=== PATIENT | male | born 1960 | race Two or more races ===

== ENCOUNTER 2023-10-12 10:41 | Emergency (ER) | payer OTHER ==
[~2023-10-12] VITALS: Ht 175.3 cm; Wt 114.8 kg
[~2023-10-12 10:41] MED LIST: KETO10TA2 PO; TAMS0.4C PO
[2023-10-12] MEDS ORDERED: IRBESARTAN150 MG PO (11:12)
[2023-10-12] MEDS ORDERED: CRESTOR40 MG PO (11:12)
[2023-10-12] MEDS ORDERED: MITIGARE0.6 MG PO (11:13)
[2023-10-12] MEDS ORDERED: DRAMAMINE LESS25 MG PO (11:13)
[2023-10-12] MEDS ORDERED: METHYLPREDNISOLONE SOD SUCC 125 MG VIAL IV ONE (11:30)
[2023-10-12] MEDS ORDERED: LEVALBUTEROL HCL 0.63 MG/3 ML SOLUTION IH SCH (11:30)
[2023-10-12] MEDS ORDERED: METHYLPREDNISOLONE SOD SUCC 125 MG VIAL ONE (11:40)
[2023-10-12] MEDS ORDERED: LEVALBUTEROL HCL 0.63 MG/3 ML SOLUTION IH ONE (11:55)
[2023-10-12 12:22] LABS: HEMOGLOBIN 13.6 g/dL (13-16.00); MEAN CELL VOLUME 85.6 fL (80.0-100.00); MEAN CORPUSCULAR HEMOGLOBIN 29.1 pg (27.00-32.0); PLATELET COUNT 213 K/uL (150-450); RED BLOOD COUNT 4.67 M/uL (4.00-6.00); RED CELL DISTRIBUTION WIDTH 14.1 % (11.5-14.5)
[2023-10-12 12:37] LABS: ABG PH 7.402 (7.35-7.45); ABG PO2 87.6 mmHg (80-100); ABG pCO2 41.6 mmHg (35-45); BASE EXCESS 0.5 mmol/l; BICARBONATE 25.3 mmol/l (23-25); SaO2 96.7 %; Tco2 26.6 mmol/l; allen test SATISFACTORY; o2 21 %; puncture site RADIAL RIGHT
[2023-10-12 12:57] LABS: PH,URINE 6.5 (5.0-8.0); URINE APPEARANCE Clear; URINE BILIRRUBIN Negative (NEGATIVE); URINE BLOOD Negative; URINE COLOR Yellow; URINE GLUCOSE Negative (NEGATIVE); URINE KETONE Negative (NEGATIVE); URINE LEUKOCYTE Negative; URINE NITRATE Negative; URINE PROTEIN Negative (NEGATIVE); URINE UROBILINOGEN 0.2 E.U./dl
[2023-10-12 12:59] LABS: CALCIUM 9.1 mg/dL (8.5-10.1); CREATININE SERUM 0.87 mg/dL (0.70-1.30); GFR 88.06; POTASSIUM 4.19 mEq/L (3.5-5.1)
[2023-10-12 13:02] LABS: URINE BACTERIA 15.1 uL (0.0-1933); URINE EPITHELIAL CELLS 2.6 uL (0.0-38.8); URINE RBC 2.7 uL (0.0-20.8); URINE WBC 2.4 uL (0.0-23.2)
[2023-10-12 13:05] LABS: URINE CAST 0.15 uL (0.0-1.40)
== END 2023-10-12 14:01 | disposition home or self-care (01) ==
LOC: ER 10:42
PROVIDERS: Emergency Medicine
DX: J45.909 Unspecified asthma, uncomplicated (principal); Z88.0 Allergy status to penicillin; Z91.041 Radiographic dye allergy status; Z88.6 Allergy status to analgesic agent; Z20.822 Contact with and (suspected) exposure to COVID-19
CPT/HCPCS: 36415; 71046; 82803; 94640; 96365; 99283; J3490

== ENCOUNTER 2023-11-13 03:41 | Emergency (ER) | payer OTHER ==
[~2023-11-13] VITALS: Ht 175.3 cm; Wt 114.8 kg
[~2023-11-13 03:41] MED LIST changes: +CRESTOR40 MG PO; +DRAMAMINE LESS25 MG PO; +IRBESARTAN150 MG PO; +MITIGARE0.6 MG PO
[2023-11-13 04:58] LABS: URINE APPEARANCE Clear; URINE BILIRRUBIN Negative (NEGATIVE); URINE BLOOD Negative; URINE COLOR Yellow; URINE KETONE Negative (NEGATIVE); URINE LEUKOCYTE Negative; URINE NITRATE Negative; URINE PROTEIN 30 (NEGATIVE); URINE UROBILINOGEN 0.2 E.U./dl
[2023-11-13 05:00] LABS: HEMATOCRIT 39.3 % (39.0-48.0); HEMOGLOBIN 13.2 g/dL (13-16.00); MEAN CELL VOLUME 85.9 fL (80.0-100.00); MEAN CORPUSCULAR HEMOGLOBIN 28.8 pg (27.00-32.0); MEAN CORPUSCULAR HGB CONC 33.5 g/dl (32.0-36.0); PLATELET COUNT 266 K/uL (150-450); RED BLOOD COUNT 4.58 M/uL (4.00-6.00); RED CELL DISTRIBUTION WIDTH 14.1 % (11.5-14.5)
[2023-11-13 05:01] LABS: URINE BACTERIA 57.9 uL (0.0-1933); URINE EPITHELIAL CELLS 3.3 uL (0.0-38.8); URINE RBC 6.8 uL (0.0-20.8); URINE WBC 14.9 uL (0.0-23.2)
[2023-11-13 05:04] LABS: URINE CAST 0.15 uL (0.0-1.40); URINE GLUCOSE 100 MG/DL (NEGATIVE)
[2023-11-13 05:18] LABS: ALBUMIN 3.5 gm/dL (3.4-5.0); BILIRUBIN TOTAL 0.29 mg/dL (0.3-1.2); CALCIUM 8.8 mg/dL (8.5-10.1); CREATININE SERUM 1.11 mg/dL (0.70-1.30); GFR 66.48; GLOBULINA 3.8 G/DL (2.4-3.5); POTASSIUM 4.82 mEq/L (3.5-5.1); TOTAL PROTEIN 7.3 gm/dL (6.4-8.2)
[2023-11-13] MEDS ORDERED: ORPHENADRINE CITRATE 30 MG/ML AMPUL IM STA (07:20)
[2023-11-13] MEDS ORDERED: KETOROLAC TROMETHAMINE 30 MG VIAL IV STA (07:20)
[2023-11-13] MEDS ORDERED: ORPHENADRINE CITRATE 30 MG/ML AMPUL ONE ×2 (07:37→12:47)
[2023-11-13] MEDS ORDERED: KETOROLAC TROMETHAMINE 30 MG VIAL ONE (07:37)
[2023-11-13] MEDS ORDERED: ORPHENADRINE CITRATE 30 MG/ML AMPUL IM ONE (12:45)
== END 2023-11-13 12:56 | disposition home or self-care (01) ==
LOC: ER 03:41
PROVIDERS: General Practice
DX: R53.81 Other malaise (principal); M54.50 Low back pain, unspecified; R10.9 Unspecified abdominal pain; I10 Essential (primary) hypertension; Z88.0 Allergy status to penicillin; Z88.5 Allergy status to narcotic agent; Z91.041 Radiographic dye allergy status
CPT/HCPCS: 36415; 74176; 93005; 96365; 96372; 99284; J1885; J2360 ×2

== ENCOUNTER 2023-11-22 18:42 | Emergency (ER) | payer OTHER ==
[~2023-11-22] VITALS: Ht 172.7 cm; Wt 90.7 kg
[2023-11-22] MEDS ORDERED: KETOROLAC TROMETHAMINE 15 MG VIAL IV ONE (19:30)
[2023-11-22] MEDS ORDERED: KETOROLAC TROMETHAMINE 30 MG VIAL ONE (19:33)
[2023-11-22 20:00] LABS: HEMATOCRIT 37.1 % (39.0-48.0); HEMOGLOBIN 12.8 g/dL (13-16.00); MEAN CELL VOLUME 85.3 fL (80.0-100.00); MEAN CORPUSCULAR HEMOGLOBIN 29.4 pg (27.00-32.0); MEAN CORPUSCULAR HGB CONC 34.5 g/dl (32.0-36.0); PLATELET COUNT 292 K/uL (150-450); RED BLOOD COUNT 4.34 M/uL (4.00-6.00); RED CELL DISTRIBUTION WIDTH 13.9 % (11.5-14.5)
[2023-11-22 20:21] LABS: ALBUMIN 3.6 gm/dL (3.4-5.0); BILIRUBIN TOTAL 0.39 mg/dL (0.3-1.2); CALCIUM 9.4 mg/dL (8.5-10.1); CREATININE SERUM 1.1 mg/dL (0.70-1.30); GFR 67.18; GLOBULINA 3.5 G/DL (2.4-3.5); POTASSIUM 4.49 mEq/L (3.5-5.1); TOTAL PROTEIN 7.1 gm/dL (6.4-8.2)
[2023-11-22 20:24] LABS: C-REACTIVE PROTEIN 3.04 MG/DL (0.00-0.29)
[2023-11-22] MEDS ORDERED: ENOXAPARIN SODIUM 80 MG/0.8 ML SYRINGE SUBCUTANEO ONE ×2 (20:45→20:48)
[2023-11-22 21:34] LABS: ERYTHROCYTE SEDIMENTATION RATE 57 mm/hr
== END 2023-11-22 21:14 | disposition home or self-care (01) ==
LOC: ER 18:43
PROVIDERS: General Practice
DX: I82.621 Acute embolism and thrombosis of deep veins of right upper extremity (principal); Z88.0 Allergy status to penicillin; Z91.041 Radiographic dye allergy status; E78.00 Pure hypercholesterolemia, unspecified; I10 Essential (primary) hypertension; I73.89 Other specified peripheral vascular diseases
CPT/HCPCS: 36415; 93005; 96365; 96372; 99283; J1650; J1885

== ENCOUNTER 2023-11-23 07:51 | Emergency (ER) | payer OTHER ==
[~2023-11-23] VITALS: Ht 175.3 cm; Wt 114.8 kg
[2023-11-23] MEDS ORDERED: hydrALAZINE HCL 20 MG VIAL IV ONE (08:45)
[2023-11-23] MEDS ORDERED: hydrALAZINE HCL 20 MG VIAL ONE (09:03)
[2023-11-23 09:50] LABS: INR 1.01; PARTIAL THROMBOPLASTIN TIME 31.4 SECONDS (22.0-34.0)
[2023-11-23 10:33] LABS: ABG PH 7.463 (7.35-7.45); ABG PO2 97.8 mmHg (80-100); ABG pCO2 33.7 mmHg (35-45); BASE EXCESS 0.5 mmol/l; BICARBONATE 23.6 mmol/l (23-25); Tco2 24.6 mmol/l; allen test SATISFACTORY; o2 21 %; puncture site RADIAL RIGHT
[2023-11-23] MEDS ORDERED: AMLODIPINE BESYLATE 10 MG TABLET PO ONE (12:30)
== END 2023-11-23 15:37 | disposition home or self-care (01) ==
LOC: ER 07:52
PROVIDERS: General Practice
DX: I10 Essential (primary) hypertension (principal); R07.9 Chest pain, unspecified; M79.601 Pain in right arm; M19.90 Unspecified osteoarthritis, unspecified site; J45.909 Unspecified asthma, uncomplicated; I50.9 Heart failure, unspecified; N40.0 Benign prostatic hyperplasia without lower urinary tract symptoms; Z88.0 Allergy status to penicillin; Z91.041 Radiographic dye allergy status; Z88.8 Allergy status to other drugs, medicaments and biological substances
CPT/HCPCS: 36415; 71045; 82803; 93005; 93971; 96365; 99284; J3490

== ENCOUNTER 2023-12-07 09:02 | Emergency (ER) | payer OTHER ==
[~2023-12-07] VITALS: Ht 172.7 cm; Wt 115.2 kg
[2023-12-07] MEDS ORDERED: BRILINTA60 MG PO (09:29)
[2023-12-07] MEDS ORDERED: ELIQUIS5 M1 PO (09:29)
[2023-12-07 11:10] LABS: HEMATOCRIT 39.9 % (39.0-48.0); HEMOGLOBIN 13.4 g/dL (13-16.00); MEAN CELL VOLUME 86.4 fL (80.0-100.00); MEAN CORPUSCULAR HEMOGLOBIN 28.9 pg (27.00-32.0); MEAN CORPUSCULAR HGB CONC 33.5 g/dl (32.0-36.0); PLATELET COUNT 369 K/uL (150-450); RED BLOOD COUNT 4.63 M/uL (4.00-6.00); RED CELL DISTRIBUTION WIDTH 13.8 % (11.5-14.5)
[2023-12-07 11:50] LABS: CALCIUM 9.4 mg/dL (8.5-10.1); CREATININE SERUM 1.04 mg/dL (0.70-1.30); GFR 71.67; POTASSIUM 4.37 mEq/L (3.5-5.1)
[2023-12-07] MEDS ORDERED: AZITHROMYCIN 500 MG TABLET PO ONE (13:30)
== END 2023-12-07 14:00 | disposition home or self-care (01) ==
LOC: ER 09:04
PROVIDERS: Emergency Medicine
DX: J40 Bronchitis, not specified as acute or chronic (principal); R05.9 Cough, unspecified; Z20.822 Contact with and (suspected) exposure to COVID-19; I10 Essential (primary) hypertension; Z88.0 Allergy status to penicillin; Z88.5 Allergy status to narcotic agent; Z91.041 Radiographic dye allergy status

== ENCOUNTER 2024-03-19 13:15 | Inpatient (IN) | payer OTHER ==
[~2024-03-19] VITALS: Ht 175.3 cm; Wt 81.6 kg
[~2024-03-19 13:15] MED LIST changes: +BRILINTA60 MG PO; +ELIQUIS5 M1 PO
[2024-03-19] MEDS ORDERED: METHYLPREDNISOLONE SOD SUCC 40 MG VIAL ONE (16:23)
[2024-03-19] MEDS ORDERED: MAGNESIUM SULFATE 50% 1,000 MG/2 ML VIAL ONE (16:23)
[2024-03-19] MEDS ORDERED: IPRATROPIUM BROMIDE 0.5 MG/2.5 ML AMPUL.NEB IH SCH (16:30)
[2024-03-19] MEDS ORDERED: MAGNESIUM SULFATE IN WATER 2 GM/50 ML PIGGYBAG IV ONE (16:30)
[2024-03-19] MEDS ORDERED: METHYLPREDNISOLONE SOD SUCC 40 MG VIAL IM ONE (16:30)
[2024-03-19] MEDS ORDERED: LEVALBUTEROL HCL 1.25 MG/3 ML SOLUTION IH SCH (16:30)
[2024-03-19 17:04] LABS: HEMATOCRIT 36.7 % (39.0-48.0); HEMOGLOBIN 12.1 g/dL (13-16.00); MEAN CELL VOLUME 82.7 fL (80.0-100.00); MEAN CORPUSCULAR HEMOGLOBIN 27.2 pg (27.00-32.0); MEAN CORPUSCULAR HGB CONC 32.8 g/dl (32.0-36.0); PLATELET COUNT 266 K/uL (150-450); RED BLOOD COUNT 4.44 M/uL (4.00-6.00); RED CELL DISTRIBUTION WIDTH 14.9 % (11.5-14.5)
[2024-03-19 17:37] LABS: ALBUMIN 3.4 gm/dL (3.4-5.0); BILIRUBIN TOTAL 0.25 mg/dL (0.3-1.2); CALCIUM 8.6 mg/dL (8.5-10.1); CREATININE SERUM 0.94 mg/dL (0.70-1.30); GFR 80.54; GLOBULINA 3.9 G/DL (2.4-3.5); POTASSIUM 4.02 mEq/L (3.5-5.1); TOTAL PROTEIN 7.3 gm/dL (6.4-8.2)
[2024-03-19] MEDS ORDERED: LEVALBUTEROL HCL 1.25 MG/3 ML SOLUTION IH ONE (18:32)
[2024-03-19] MEDS ORDERED: IPRATROPIUM BROMIDE 0.5 MG/2.5 ML AMPUL.NEB IH ONE (18:32)
[2024-03-19 19:22] LABS: ABG PH 7.391 (7.35-7.45); ABG PO2 57.8 mmHg (80-100); ABG pCO2 44.7 mmHg (35-45); BASE EXCESS 1.1 mmol/l; BICARBONATE 26.5 mmol/l (23-25); SaO2 89.5 %; Tco2 27.9 mmol/l; puncture site RADIAL RIGHT
[2024-03-19 19:23] LABS: allen test SATISFACTORY; o2 21 %
[2024-03-19] MEDS ORDERED: ACETAMINOPHEN 500 MG GEL..CAP PO PRN (23:45)
[2024-03-19] MEDS ORDERED: 0.9 % SODIUM CHLORIDE 1,000 ML IV SCH (23:45)
[2024-03-19] MEDS ORDERED: MONTELUKAST SODIUM 10 MG TABLET PO SCH (23:46)
[2024-03-19] MEDS ORDERED: levoFLOXacin IN DEXTROSE 5 % 150 ML IV SCH (23:47)
[2024-03-19] MEDS ORDERED: FAMOTIDINE/PF 20 MG in 0.9 % SODIUM CHLORIDE 8 ML IV PUSH SCH (23:47)
[2024-03-20] MEDS ORDERED: METHYLPREDNISOLONE SOD SUCC 40 MG VIAL IV SCH ×3 (01:00→17:00)
[2024-03-20] MEDS ORDERED: LEVALBUTEROL HCL 1.25 MG/3 ML SOLUTION IH SCH (01:00)
[2024-03-20] MEDS ORDERED: GUAIFEN/DEXTROMETHORPHAN/PE 10 ML BLIST.PACK PO SCH (01:00)
[2024-03-20] MEDS ORDERED: IPRATROPIUM BROMIDE 0.5 MG/2.5 ML AMPUL.NEB IH SCH (01:00)
[2024-03-20 04:21] LABS: D DIMER 0.33 MG/L; PARTIAL THROMBOPLASTIN TIME 26.2 SECONDS (22.0-34.0)
[2024-03-20 04:42] LABS: INR 0.99; PROTHROMBIN TIME 10.8 SECONDS (9.0-11.5)
[2024-03-20 04:49] LABS: URINE APPEARANCE Clear; URINE BILIRRUBIN Negative (NEGATIVE); URINE BLOOD Negative; URINE COLOR Yellow; URINE KETONE Trace (NEGATIVE); URINE LEUKOCYTE Negative; URINE NITRATE Negative; URINE PROTEIN Trace (NEGATIVE); URINE UROBILINOGEN 0.2 E.U./dl
[2024-03-20 04:53] LABS: URINE BACTERIA 18.3 uL (0.0-1933); URINE RBC 4.1 uL (0.0-20.8); URINE WBC 4.5 uL (0.0-23.2)
[2024-03-20 05:00] LABS: URINE GLUCOSE 500 MG/DL (NEGATIVE)
[2024-03-20] MEDS ORDERED: APIXABAN 5 MG TABLET PO SCH (05:00)
[2024-03-20 08:48] VITALS: BP 160/70; O2SAT 97
[2024-03-20] MEDS ORDERED: TICAGRELOR 90 MG TABLET PO SCH (09:00)
[2024-03-20] MEDS ORDERED: hydrALAZINE HCL 25 MG TABLET PO SCH (09:00)
[2024-03-20] MEDS ORDERED: ATORVASTATIN CALCIUM 40 MG TABLET PO SCH (09:00)
[2024-03-20] MEDS ORDERED: DIPHENHYDRAMINE HCL 50 MG/ML VIAL 1ML IV NR (09:15)
[2024-03-20] MEDS ORDERED: BUDESONIDE 0.5 MG/2 ML AMPUL.NEB IH NR (14:00)
[2024-03-20 16:52] VITALS: BP 158/72; O2SAT 100
[2024-03-20] MEDS ORDERED: BUDESONIDE 0.5 MG/2 ML AMPUL.NEB IH SCH (21:00)
[2024-03-21 01:25] VITALS: BP 146/67; O2SAT 97
[2024-03-21 07:04] LABS: HEMATOCRIT 36.5 % (39.0-48.0); HEMOGLOBIN 11.8 g/dL (13-16.00); MEAN CELL VOLUME 84.5 fL (80.0-100.00); MEAN CORPUSCULAR HEMOGLOBIN 27.3 pg (27.00-32.0); MEAN CORPUSCULAR HGB CONC 32.3 g/dl (32.0-36.0); PLATELET COUNT 284 K/uL (150-450); RED BLOOD COUNT 4.31 M/uL (4.00-6.00); RED CELL DISTRIBUTION WIDTH 14.3 % (11.5-14.5)
[2024-03-21 07:45] LABS: ALKALINE PHOSPHATASE 76 U/L (50-136); ALT/SGPT 25 U/L (12-78); ANION GAP 9 (10.0-20.0); AST/SGOT 14 U/L (15-37); BILIRUBIN TOTAL 0.17 mg/dL (0.3-1.2); BLOOD UREA NITROGEN 18 mg/dL (7-18); BUN CREA RATIO 19 (7.0-25.0); CALCIUM 8.8 mg/dL (8.5-10.1); CARBON DIOXIDE 29 mEq/L (21-32); CHLORIDE 109 mmol/L (98-107); CREATININE SERUM 0.93 mg/dL (0.70-1.30); GFR 81.54; GLOBULINA 3.1 G/DL (2.4-3.5); GLUCOSE FASTING 184 mg/dL (65-100); OSMOLALITY SERUM 290 MOSM/KG (275-295); PHOSPHOROUS 3.1 mg/dL (2.5-4.9); POTASSIUM 5.28 mEq/L (3.5-5.1); SODIUM 142 mmol/L (136-145); TOTAL PROTEIN 6.1 gm/dL (6.4-8.2)
[2024-03-21 07:51] LABS: C-REACTIVE PROTEIN < 0.29 MG/DL (0.00-0.29)
[2024-03-21 09:18] VITALS: BP 162/82; O2SAT 96
[2024-03-21 15:30] VITALS: BP 155/66
[2024-03-21] MEDS ORDERED: FAMOTIDINE/PF 20 MG in 0.9 % SODIUM CHLORIDE 8 ML IV PUSH SCH (21:00)
[2024-03-22] MEDS ORDERED: METHYLPREDNISOLONE SOD SUCC 40 MG VIAL ONE (00:20)
[2024-03-22 00:57] VITALS: BP 179/77; O2SAT 98
[2024-03-22] MEDS ORDERED: METHYLPREDNISOLONE SOD SUCC 40 MG VIAL IV SCH (01:00)
[2024-03-22 09:31] VITALS: BP 159/76; O2SAT 98
[2024-03-22] MEDS ORDERED: FAMOTIDINE/PF 20 MG/2 ML VIAL ONE (15:57)
[2024-03-22 16:26] VITALS: BP 153/71; O2SAT 97
[2024-03-23 01:00] VITALS: BP 128/65; O2SAT 97
[2024-03-23 08:14] LABS: HEMOGLOBIN 11.7 g/dL (13-16.00); MEAN CELL VOLUME 84.1 fL (80.0-100.00); MEAN CORPUSCULAR HEMOGLOBIN 27.3 pg (27.00-32.0); MEAN CORPUSCULAR HGB CONC 32.5 g/dl (32.0-36.0); PLATELET COUNT 292 K/uL (150-450); RED BLOOD COUNT 4.28 M/uL (4.00-6.00); RED CELL DISTRIBUTION WIDTH 15.1 % (11.5-14.5)
[2024-03-23 08:25] VITALS: BP 158/70
[2024-03-23 08:34] LABS: ALBUMIN 2.8 gm/dL (3.4-5.0); ALKALINE PHOSPHATASE 74 U/L (50-136); ALT/SGPT 29 U/L (12-78); ANION GAP 10 (10.0-20.0); AST/SGOT 13 U/L (15-37); BILIRUBIN TOTAL 0.16 mg/dL (0.3-1.2); BLOOD UREA NITROGEN 21 mg/dL (7-18); BUN CREA RATIO 20 (7.0-25.0); CALCIUM 8.2 mg/dL (8.5-10.1); CARBON DIOXIDE 29 mEq/L (21-32); CHLORIDE 107 mmol/L (98-107); CREATININE SERUM 1.07 mg/dL (0.70-1.30); GFR 69.36; GLOBULINA 2.9 G/DL (2.4-3.5); OSMOLALITY SERUM 292 MOSM/KG (275-295); PHOSPHOROUS 2.9 mg/dL (2.5-4.9); SODIUM 141 mmol/L (136-145); TOTAL PROTEIN 5.7 gm/dL (6.4-8.2)
[2024-03-23 08:35] LABS: C-REACTIVE PROTEIN < 0.29 MG/DL (0.00-0.29); GLUCOSE FASTING 231 mg/dL (65-100)
== END 2024-03-23 13:54 | disposition home or self-care (01) | DRG 203 ==
LOC: ER 13:15 → MEDI 23:50 → SEC-K 23:50 → MEDI 03-20 01:28
PROVIDERS: General Practice; Internal Medicine Infectious Disease; ADMIT Internal Medicine; ATTEND Internal Medicine
PROC: BB24ZZZ Computerized Tomography (CT Scan) of Bilateral Lungs (ICD-10-PCS; principal; 2024-03-19)
PROC: 3E0F7GC Introduction of Other Therapeutic Substance into Respiratory Tract, Via Natural or Artificial Opening (ICD-10-PCS; 2024-03-19)
DX: J45.41 Moderate persistent asthma with (acute) exacerbation (principal); J20.9 Acute bronchitis, unspecified; I10 Essential (primary) hypertension; G47.33 Obstructive sleep apnea (adult) (pediatric); D72.829 Elevated white blood cell count, unspecified

== ENCOUNTER → 2024-08-26 | Emergency (ER) | payer OTHER ==
[~2024-08-26] VITALS: Ht 175.3 cm; Wt 115.2 kg
[~2024-08-26] MED LIST changes: +KETOROLAC TROMETHAMINE 60 MG VIAL IM STA; +PROTONIX40 M1; +TRAMADOL HCL 50 MG TABLET PO STA
== END | disposition home or self-care (01) ==
LOC: ER 13:00
DX: G89.11 Acute pain due to trauma (principal); M25.562 Pain in left knee; I10 Essential (primary) hypertension; E11.9 Type 2 diabetes mellitus without complications; Z88.0 Allergy status to penicillin; Z88.5 Allergy status to narcotic agent; Z91.041 Radiographic dye allergy status
CPT/HCPCS: 29505; 73560; 96372; 99283; J1885